=== PATIENT | male | born 1995 | race Caucasian/White ===

== ENCOUNTER 2021-12-01 14:21 | Outpatient (REF) | payer MEDICAID, SELFPAY ==
[2021-12-02 09:22] LABS: HBs Antibody, Quant 4.3 mIU/mL (See Note); Hepatitis B Surface Ab Negative (See Note)
[2021-12-02 10:43] LABS: Hep A Total Ab w Rflx IgM Positive (Negative)
[2021-12-02 11:54] LABS: Hep A Antibody IgM Negative (Negative); Measles IgG Antibody Positive (See Note); Varicella IgG Antibody Positive (See Note)
[2021-12-02 12:02] LABS: Mumps Antibody IgG Positive (See Note); Rubella IgG Ab (UVM) Positive (See Note)
== END 2021-12-01 14:22 | disposition home or self-care (01) ==
LOC: NCHCN 14:21
PROVIDERS: PCP Nurse Practitioner; Visit Provider Nurse Practitioner
DX: Z71.89 Other specified counseling (principal)
CPT/HCPCS: 86706; 86709; 86787; 86735; 86762; 86765